=== PATIENT | female | born 1980 | race Caucasian/White ===

== ENCOUNTER 2024-06-09 09:32 | Emergency (ER) | payer OTHER, SELFPAY ==
[2024-06-09 09:37] VITALS: BP 118/77; PULSE 90; TEMP 36.8; O2SAT 99; BMI 32.0
--- NOTE | 2024-06-09 09:54 | US_ITS ---
[place] [id number] Patient Name: ANTONY LÓPEZ MRN: [id number] date: 1980 Sex: F Assigned Patient Location: ER Current Patient Location: ER Accession/Order Number: [id number] Exam Date: 06/09/2024 11:00 Report Date: 06/09/2024 12:27 At the request of: NATASHA MINOR Procedure: US OB transvaginal PROCEDURE: US OB transvaginal, 06/09/2024 11:00 AM EDT CLINICAL INDICATIONS: Left lower quadrant pain, encounter for first trimester . 10 para 7 AB 2 LMP 03/15/2024 Expected gestational age by LMP: 12 weeks 2 days Expected AVINASH by LMP: 12/20/2024 COMPARISON: None TECHNIQUE: Transvaginal first trimester obstetric sonogram, grayscale, assessment FINDINGS: Uterus: A single living intrauterine is identified. Intrauterine gestational sac, body, cardiac activity noted. Heart rate 165 bpm. Transvaginal cervical length 4.9 cm, closed. No perigestational hemorrhage. Mean gestational sac size: 4.75 cm crown-rump length: 5.5 cm Sonographic gestational age: 12 weeks 1 day +/- 1 week 1 day Sonographic AVINASH 12/21/2024 Maternal right ovary: Not identified. Maternal left ovary: 3.7 x 2.3 x 2.4 cm, volume 11 mL. 2.0 x 1.8 x 1.9 cm maternal left ovarian corpus luteal cyst noted. Intact flow within the left ovary identified by color assessment. Spectral assessment not performed. Trace maternal pelvic free fluid in the cul-de-sac seen. US/US OB transvaginal IMPRESSION: 1. Single living intrauterine , sonographic gestational age of 12 weeks 1 day +/- 1 week 1 day 2. Sonographic AVINASH, 12/21/2024 3. No perigestational hemorrhage 4. 4.9 cm transvaginal cervical length, closed 5. Nonvisualization maternal right ovary 6. 2.0 cm maternal left ovarian corpus luteal cyst 7. Trace maternal pelvic free fluid Electronically authenticated by: CARISSA SMITH Date: 06/09/2024 12:27
--- NOTE | 2024-06-09 09:58 | ED_ITS ---
HPI - Abdominal Pain General Chief Complaint: Abdominal Pain Stated Complaint: ABDOMINAL PAIN Time Seen by Provider: 06/09/24 09:50 Source: patient Mode of arrival: walk-in Limitations: no limitations History of Present Illness HPI narrative: 43-year-old female presents for abdominal pain. She is complaining pain in the left lower abdomen and states she is 12 weeks . LMP March 15. She has had no bleeding or trauma. No dysuria or hematuria. She has never had a kidney stone. The pain does not radiate to her flank. Related Data Allergies Allergy/AdvReac Type Severity Reaction Status Date / Time cefuroxime [From Ceftin] Allergy Hives Verified 06/09/24 09:36 Review of Systems ROS Narrative A ten point review of systems is negative except as noted above. 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 General: The patient appears in no apparent distress. Skin: Warm, dry, no pallor noted. There is no rash noted. Head: Normocephalic, atraumatic Eye: Normal conjunctiva, no drainage Ears, Nose, Mouth, and Throat: oral mucosa is moist. Nares patent. Cardiovascular: Regular Rate and Rhythm Respiratory: Patient is in no distress, no accessory muscle use, lungs are clear to auscultation, no wheezing, rales or rhonchi Back: non-tender GI: Soft and nondistended. Minimal tenderness in the left lower quadrant Musculoskeletal: The patient has no evidence of calf tenderness, no pitting edema, symmetrical pulses noted bilaterally Neurological: Awake and alert Psychiatric: Cooperative, tearful at times Constitutional Vital Signs, click to edit/add: Last Vital Signs Temp 98.3 F 06/09/24 09:37 Pulse 90 06/09/24 09:37 Resp 20 06/09/24 09:37 BP 118/77 06/09/24 09:37 Pulse Ox 99 06/09/24 09:37 O2 Del Method Room Air 06/09/24 09:37 Course Vital Signs Vital signs: Vital Signs Temperature 98.3 F 06/09/24 09:37 Pulse Rate 90 06/09/24 09:37 Respiratory Rate 20 06/09/24 09:37 Blood Pressure 118/77 06/09/24 09:37 Pulse Oximetry 99 06/09/24 09:37 Oxygen Delivery Method Room Air 06/09/24 09:37 Temperature 98.3 F 06/09/24 09:37 Pulse Rate 90 06/09/24 09:37 Respiratory Rate 06/09/24 09:37 Blood Pressure 118/77 06/09/24 09:37 Pulse Oximetry 99 06/09/24 09:37 Oxygen Delivery Method Room Air 06/09/24 09:37 MDM - Abdominal Pain MDM Narrative Medical decision making narrative: Ultrasound shows corpus luteal cyst, otherwise IUP without other acute findings. No evidence of UTI and she is discharged home. Treatment diagnosis and follow- up were discussed with the patient. Differential Diagnosis Differential diagnosis: Likely abdominal pain, constipation and other (Miscarriage) Lab Data Attestation: I reviewed the patient's lab results. Labs: Lab Results 06/09/24 06/09/24 Range/Units 10:09 10:12 WBC 7.8 (4.0-11.0) 10^3/uL RBC 4.20 (4.20-5.40) 10^6/uL Hgb 12.2 (12.0-16.0) g/dL Hct 36.2 (36.0-48.0) % MCV 86.2 (81.0-99.0) fL MCH 29.0 (26.7-34.0) pg MCHC 33.7 (29.9-35.2) g/dL RDW 13.9 (11.0-15.0) % Plt Count 275 (150-450) 10^3/uL MPV 9.5 (9.5-13.5) fL Neut % (Auto) 62.2 (43.0-75.0) % Lymph % (Auto) 27.1 (20.5-60.0) % [place] % (Auto) 6.6 (1.7-12.0) % Eos % (Auto) 3.2 (0.9-7.0) % Baso % (Auto) 0.5 (0.2-2.0) % Neut # (Auto) 4.8 (1.4-6.5) 10^3/uL Lymph # (Auto) 2.1 (1.2-3.8) 10^3/uL [place] # (Auto) 0.5 (0.3-0.8) 10^3/uL Eos # (Auto) 0.3 (0.0-0.7) 10^3/uL Baso # (Auto) 0.0 (0.0-0.1) 10^3/uL Abs Immat Gran (auto) 0.03 (0.00-0.03) 10^3/uL Imm/Tot Granulo (auto) 0.4 (0.0-0.5) % Sodium 136 (136-145) mmol/L Potassium 3.2 L (3.5-5.1) mmol/L Chloride 102 (98-107) mmol/L Carbon Dioxide 24.4 (21.0-32.0) mmol/L Anion Gap 12.8 BUN 6.0 L (7.0-18.0) mg/dL Creatinine 0.56 (0.55-1.02) mg/dL Est GFR ( Amer) >60 (>=60) Est GFR (Non-Af Amer) >60 (>=60) BUN/Creatinine Ratio 10.7 Glucose 92 (74-106) mg/dL Calcium 8.6 (8.5-10.1) mg/dL HCG, Quant 07838 mIU/mL Urine Color Lt. yellow (YELLOW) Urine Clarity Clear (CLEAR) Urine pH 6.0 (5.0-9.0) Ur Specific [place] 1.020 (1.005-1.025) Urine Protein Negative (NEG/TRACE) mg/dL Urine Glucose (UA) Negative (NEGATIVE) mg/dL Urine Ketones Negative (NEGATIVE) mg/dL Urine Occult Blood Trace-i (NEGATIVE) Urine Nitrite Negative (NEGATIVE) Urine Bilirubin Negative (NEGATIVE) Urine Urobilinogen 0.2 (0.2-1.0) EU/dL Ur Leukocyte Esterase Negative (NEGATIVE) Urine RBC 0-2 (0-2) #/HPF Urine WBC 0-2 A (NONE SEEN) #/HPF Ur Squamous Epith Cells Few A (NONE/RARE) #/LPF Urine Crystals None seen (None Seen) #/HPF Urine Bacteria Trace A (NONE SEEN) #/HPF Urine Casts None seen (NONE SEEN) #/LPF Urine Mucus Trace A (NONE SEEN) Blood Type O Positive Imaging Data Pelvic ultrasound: Radiologist's impression: ITS Impressions Transvaginal US 06/09/24 09:54 IMPRESSION: 1. Single living intrauterine , sonographic gestational age of 12 weeks 1 day +/- 1 week 1 day 2. Sonographic AVINASH, 12/21/2024 3. No perigestational hemorrhage 4. 4.9 cm transvaginal cervical length, closed 5. Nonvisualization maternal right ovary 6. 2.0 cm maternal left ovarian corpus luteal cyst 7. Trace maternal pelvic free fluid Electronically authenticated by: CARISSA SMITH Date: 06/09/2024 12:27 Discharge Plan Discharge Chief Complaint: Abdominal Pain Clinical Impression: Abdominal pain in Patient Disposition: Home, Self-Care Time of Disposition Decision: 12:37 Condition: Good Mode of Transportation: Private Vehicle Print Language: [place] Instructions: Abdominal Pain in (ED) Referrals: Physician,Non-Staff, [Primary Care Provider] - 1 week
[2024-06-09 10:20] LABS: Basophils Percent Auto 0.5 % (0.2-2.0); Eosinophils Absolute Auto 0.3 10^3/uL (0.0-0.7); Eosinophils Percent Auto 3.2 % (0.9-7.0); Hematocrit 36.2 % (36.0-48.0); Hemoglobin 12.2 g/dL (12.0-16.0); Immature Granulocytes Abs Auto 0.03 10^3/uL (0.00-0.03); Immature Granulocytes Pct Auto 0.4 % (0.0-0.5); Lymphocytes Absolute Auto 2.1 10^3/uL (1.2-3.8); Lymphocytes Percent Auto 27.1 % (20.5-60.0); Mean Corpuscular HGB Conc 33.7 g/dL (29.9-35.2); Mean Corpuscular Volume 86.2 fL (81.0-99.0); Mean Platelet Volume 9.5 fL (9.5-13.5); Monocytes Absolute Auto 0.5 10^3/uL (0.3-0.8); Monocytes Percent Auto 6.6 % (1.7-12.0); Neutrophils Absolute Auto 4.8 10^3/uL (1.4-6.5); Neutrophils Percent Auto 62.2 % (43.0-75.0); Platelet Count 275 10^3/uL (150-450); Red Cell Distribution Width 13.9 % (11.0-15.0); White Blood Count 7.8 10^3/uL (4.0-11.0)
[2024-06-09 10:20] LABS: Bilirubin Urine NEGATIVE (NEGATIVE); Blood Urine TRACE-I (NEGATIVE); Clarity Urine CLEAR (CLEAR); Color Urine LT. YELLOW (YELLOW); Glucose Urine UA NEGATIVE (NEGATIVE); Ketones Urine NEGATIVE (NEGATIVE); Leukocyte Esterase Urine NEGATIVE (NEGATIVE); Nitrite Urine NEGATIVE (NEGATIVE); Protein Urine NEGATIVE (NEG/TRACE); Urobilinogen Urine 0.2 EU/dL (0.2-1.0)
[2024-06-09] MEDS: 0.9 % SODIUM CHLORIDE 1,000 ML 1000 ML IV (10:23)
[2024-06-09] MEDS: ONDANSETRON PF 4 MG/2 ML VIAL IV (10:24)
[2024-06-09 10:45] LABS: Bacteria Urine TRACE #/HPF (NONE SEEN); Cast Seen? NONE SEEN #/LPF (NONE SEEN); Crystals Seen? None Seen #/HPF (None Seen); Mucus Urine TRACE (NONE SEEN); RBC Urine 0-2 #/HPF (0-2); Squamous Epithelial Cell Urine FEW #/LPF (NONE/RARE); WBC Urine 0-2 #/HPF (NONE SEEN)
[2024-06-09 11:01] LABS: Anion Gap 12.8; BUN Creatinine Ratio 10.7; Calcium 8.6 mg/dL (8.5-10.1); Carbon Dioxide 24.4 mmol/L (21.0-32.0); Chloride 102 mmol/L (98-107); Estimated GFR (African America >60 (>=60); Estimated GFR (Non-African Ame >60 (>=60); Glucose 92 mg/dL (74-106); Potassium 3.2 mmol/L (3.5-5.1); Sodium 136 mmol/L (136-145)
[2024-06-09 11:04] LABS: HCG Quantitative 58867 mIU/mL
== END 2024-06-09 12:50 | disposition home or self-care (01) ==
PROVIDERS: Emergency Provider Emergency Medicine
DX: O26.891 Other specified pregnancy related conditions, first trimester (principal); R10.32 Left lower quadrant pain; O34.81 Maternal care for other abnormalities of pelvic organs, first trimester; N83.12 Corpus luteum cyst of left ovary; Z3A.12 12 weeks gestation of pregnancy
CPT/HCPCS: 36415; 76817; 80048; 81001; 84702; 85025; 86900; 86901; 96374; 99285; J2405